=== PATIENT | male | born 1975 | race American Indian/Alaskan Native ===

== ENCOUNTER 2017-07-28 22:34 | Emergency (ER) | payer MEDICARE ==
[2017-07-28 22:44] VITALS: BMI 31.0
[2017-07-28] MEDS ORDERED: Multivitamin (MVI) 10 ML, Thiamine 100 MG, Folic Acid 1 MG in Sodium Chloride 0.9% 1,00... IV ONE (22:51)
--- NOTE | 2017-07-28 22:57 | ED PDOC ---
Arrival/HPI <Yesenia Briseno - Last Filed: 07/29/17 06:49> - General Historian: Patient <Gloria Valladares PA-C - Last Filed: 07/31/17 01:20> - General Time Seen by Provider: 07/28/17 22:41 - History of Present Illness Narrative History of Present Illness (Text): 07/28/17 22:54 41 yo M presents to the ER, brought in by ambulance for etoh intoxication. Patient admits to drinking alcohol today, as per EMS, patient admitted to them that he drank 24 ounces of beer and was found sitting in front of a laundry mat. Patient admits to drinking daily, he states that he usually goes to [facility]. Reports no h/o trauma, injury. Denies any headache, CP, SOB, abdominal pain. PMD none (Gloria Valladares PA-C) Past Medical History - Provider Review Nursing Documentation Reviewed: Yes <Gloria Valladares PA-C - Last Filed: 07/31/17 01:20> Family/Social History - Physician Review Nursing Documentation Reviewed: Yes Family/Social History: Unknown Family HX <Gloria Valladares PA-C - Last Filed: 07/31/17 01:20> Allergies/Home Meds <Yesenia Briseno - Last Filed: 07/29/17 06:49> <Gloria Valladares PA-C - Last Filed: 07/31/17 01:20> Allergies/Adverse Reactions: Allergies No Known Allergies Allergy (Verified 07/28/17 22:38) Home Medications: Home Meds Medication Instructions Recorded Confirmed Unobtainable 07/28/17 07/28/17 Review of Systems - Review of Systems Constitutional: absent: Fatigue, Fevers Respiratory: absent: SOB, Cough Cardiovascular: absent: Chest Pain, Palpitations Gastrointestinal: absent: Abdominal Pain Skin: absent: Rash Neurological: absent: Headache, Dizziness <Gloria Valladares PA-C - Last Filed: 07/31/17 01:20> Physical Exam <Yesenia Briseno - Last Filed: 07/29/17 06:49> <Gloria Valladares PA-C - Last Filed: 07/31/17 01:20> - Physical Exam Narrative Physical Exam (Text): 07/28/17 22:58 GENERAL APPEARANCE: Patient is awake, alert, +strong odor of etoh in patient's breath, in no acute distress, +vomit on patient's clothes. SKIN: Warm, dry; (-) cyanosis. HEAD: Atraumatic, normocephalic. EYES: (+) mild injected conjunctiva, (-) conjunctival pallor, (-) scleral icterus. ENMT: Mucous membranes dry. NECK: (-) tenderness, (-) stiffness, (-) lymphadenopathy. CHEST AND RESPIRATORY: (-) rales, (-) rhonchi, (-) wheezes; breath sounds equal bilaterally. HEART AND CARDIOVASCULAR: (-) irregularity; (-) murmur, (-) gallop. ABDOMEN AND GI: (-) distention. Bowel sounds active; (-) tenderness, (-) guarding, (-) rebound, (-) palpable masses, (-) CVA tenderness. EXTREMITIES: (-) deformity, (-) edema, (+) distal pulses. NEURO AND PSYCH: Mental status as above; (-) focal findings. (Gloria Valladares PA-C) Vital Signs Temp Pulse Resp BP Pulse Ox 07/29/17 07:40 98 F 75 20 121/71 99 07/29/17 06:42 98 H 20 109/65 96 07/28/17 22:57 97.6 F 100 H 20 139/96 H 97 Medical Decision Making Reassessment Condition: Improved <Yesenia Briseno - Last Filed: 07/29/17 06:49> <Gloria Valladares PA-C - Last Filed: 07/31/17 01:20> ED Course and Treatment: 07/28/17 22:57 41 yo M presents to the ER, brought in by ambulance for etoh intoxication. As per EMT Peter, he states that he observed the patient vomiting here in the ER , he states that the patient vomited to the side of the bed and did not aspirate. Plan : - Labs - IV - Banana bag IV - FS Labs reviewed : glucose is 326 and etoh level is 306. IVF still infusing. On re- evaluation, patient is laying in bed comfortably, remains awake, alert, in no acute distress, is no longer vomiting and denies any nausea. Reports no pain at this time, is requesting to urinate, urinal provided to the patient. Will continue to observe until he is sober and safe for d/c. On re-evaluation, patient is sleeping comfortably in bed in no distress, breathing is easy and unlabored. Case endorsed to Dr. Briseno pending disposition. (Blaine ANDERSON,Gloria Colon) - Lab Interpretations Lab Results: 07/28/17 23:05 07/28/17 23:05 Lab Results 07/29/17 01:15: Lipase 297 07/29/17 01:15: Urine Opiates Screen Negative, Urine Methadone Screen Negative, Ur Barbiturates Screen Negative, Ur Phencyclidine Scrn Negative, Ur Amphetamines Screen Negative, U Benzodiazepines Scrn Negative, U Oth Cocaine Metabols Negative, U Cannabinoids Screen Negative 07/28/17 23:05: Alcohol, Quantitative 306 H* 07/28/17 23:05: Sodium 139, Potassium 4.1, Chloride 98, Carbon Dioxide 24, Anion Gap 21 H, BUN 10, Creatinine 0.6 L, Est GFR ( Amer) > 60, Est GFR ( Non-Af Amer) > 60, Random Glucose 326 H*, Calcium 9.6, Total Bilirubin 0.4, AST 27, ALT 32, Alkaline Phosphatase 84, Total Protein 8.0, Albumin 4.6, Globulin 3.4, Albumin/Globulin Ratio 1.3 07/28/17 23:05: WBC 8.2, RBC 5.26, Hgb 15.1, Hct 44.2, MCV 84.0, MCH 28.7, MCHC 34.2, RDW 12.3, Plt Count 195, MPV 9.5, Gran % 62.1, Lymph % (Auto) 28.7, Cobb % (Auto) 6.4 H, Eos % (Auto) 2.4, Baso % (Auto) 0.4, Gran # 5.08, Lymph # 2.4, Cobb # 0.5, Eos # 0.2, Baso # 0.03 - RAD Interpretation Radiology Orders: 07/29/17 01:26 CHEST TWO VIEWS (PA/LAT) [RAD] Stat - Medication Orders Current Medication Orders: Discontinued Medications Multivitamins/Vitamin C 10 ml/Thiamine HCl 100 mg/ Folic Acid 1 mg/ Sodium Chloride 1,011.2 mls @ 500 mls/hr IV .Q2H2M ONE Stop: 07/29/17 00:52 Last Admin: 07/28/17 23:16 Dose: 500 mls/hr eMAR Start Stop Document 07/28/17 23:16 YP (Rec: 07/28/17 23:16 YP [id number]) Intravenous Solution Start Date 07/28/17 Start Time 23:16 End Date 07/29/17 End time 01:18 Total Infusion Time 122 Ondansetron HCl (Zofran Inj) 4 mg IVP STAT STA Stop: 07/28/17 23:09 Last Admin: 07/28/17 23:12 Dose: 4 mg IVP Administration Document 07/28/17 23:12 YP (Rec: 07/28/17 23:12 YP [id number]) Charges for Administration # of IVP Administrations 1 - PA / SALES ENGAGEMENT EXECUTIVE / Resident Statement MD/DO has reviewed & agrees with the documentation as recorded. <Gloria Valladares PA-C - Last Filed: 07/31/17 01:20> Disposition/Present on Arrival - Disposition Have Diagnosis and Disposition been Completed?: Yes Disposition Time: 06:51 Patient Plan: Discharge <Yesenia Briseno - Last Filed: 07/29/17 06:49> - Present on Arrival Any Indicators Present on Arrival: No History of DVT/PE: No History of Uncontrolled Diabetes: No Urinary Catheter: No History of Decub. Ulcer: No - Disposition Have Diagnosis and Disposition been Completed?: Yes <Gloria Valladares PA-C - Last Filed: 07/31/17 01:20> - Disposition Diagnosis: Alcohol intoxication, Hyperglycemia Disposition: HOME/ ROUTINE Condition: GOOD Discharge Instructions (ExitCare): Alcohol Intoxication (ED), Diabetic Hyperglycemia (ED) Print Language: FIJIAN Additional Instructions: Mr Augustin, thank you for letting us take care of you today. Your provider was Dr. Mar. You were treated for Alcohol Intoxication, Hyperglycemia. The emergency medical care you received today was directed at your acute symptoms. If you were prescribed any medication, please fill it and take as directed. It may take several days for your symptoms to resolve. Return to the Emergency Department if your symptoms worsen, do not improve, or if you have any other problems. Please contact your doctor or call one of the physicians/clinics you have been referred to that are listed on the Patient Visit Information form that is included in your discharge packet. Bring any paperwork you were given at discharge with you along with any medications you are taking to your follow up visit. Our treatment cannot replace ongoing medical care by a primary care provider (PCP) outside of the emergency department. Thank you for allowing the [facility] team to be part of your care today. If you had an X-Ray or CT scan: A Radiologist will review the ED reading if any change in treatment is needed we will contact you. If you had a blood, urine, or wound culture: It will take several days for the results, if any change in treatment is needed we will contact you. If you had an STI test: It will take 48 hours for the results. Please call after 1 week if you have not heard back. Referrals: PCP,NO [Primary Care Provider] - Follow up with primary [facility] [Outside] - Follow up with primary Forms: [employer] (Burkinan), WORK NOTE
[2017-07-28 22:58] VITALS: RESP 20
[2017-07-28 23:16] LABS: BASO # 0.03 K/mm3 (0.0-2.0); BASO % 0.4 % (0.0-3.0); EOS # 0.2 (0.0-0.7); EOS % 2.4 % (1.5-5.0); GRAN # 5.08 (1.4-6.5); GRAN % 62.1 % (50.0-68.0); HEMATOCRIT 44.2 % (42.0-52.0); LYMPH # 2.4 (1.2-3.4); LYMPH % 28.7 % (22.0-35.0); MEAN CORPUSCULAR HEMOGLOBIN 28.7 pg (25.0-35.0); MEAN CORPUSCULAR HGB CONC 34.2 g/dl (31.0-37.0); MEAN PLATELET VOLUME 9.5 fl (7.0-11.0); MONO # 0.5 (0.1-0.6); MONO % 6.4 % (1.0-6.0); RED CELL DISTRIBUTION WIDTH 12.3 % (11.5-14.5); WHITE BLOOD COUNT 8.2 10^3/ul (4.5-11.0)
[2017-07-29 00:14] LABS: ALB/GLOB RATIO 1.3 (1.1-1.8); ALKALINE PHOSPHATASE 84 U/L (38-126); ALT/SGPT 32 U/L (7-56); AST/SGOT 27 U/L (17-59); BILIRUBIN,TOTAL 0.4 mg/dL (0.2-1.3); BLOOD UREA NITROGEN 10 mg/dL (7-21); CALCIUM 9.6 mg/dL (8.4-10.5); CARBON DIOXIDE 24 mmol/L (21-33); CHLORIDE 98 mmol/L (98-107); GFR AFRICAN-AMERICAN > 60; GLUCOSE,RANDOM 326 mg/dL (70-110); POTASSIUM 4.1 mmol/L (3.6-5.0); SODIUM 139 mmol/L (132-148)
--- NOTE | 2017-07-29 07:35 | ED PDOC ---
Physical Exam Vital Signs Temp Pulse Resp BP Pulse Ox 07/29/17 06:42 98 H 20 109/65 96 07/28/17 22:57 97.6 F 100 H 20 139/96 H 97 Finger Stick Blood Glucose: 308 Medical Decision Making ED Course and Treatment: 07/29/17 07:00 Case signed out to me by Dr. Briseno. Patient was brought in to the emergency department via EMS ETOH intoxication. Patient admits to drinking alcohol today, as per EMS, patient admitted to them that he drank 24 ounces of beer and was found sitting in front of a laundry mat. Currently observing patient for sobriety. 07/29/17 07:37 Patient is currently sober. Patient has no slurred speech and is awake, alert and oriented x 3. Denies any pain. No HI or SI. Encouraged him to enter an alcohol detox program. He will f/u with a primary care doctor or the clinic. - Lab Interpretations Lab Results: 07/28/17 23:05 07/28/17 23:05 Lab Results 07/29/17 01:15: Lipase 297 07/29/17 01:15: Urine Opiates Screen Negative, Urine Methadone Screen Negative, Ur Barbiturates Screen Negative, Ur Phencyclidine Scrn Negative, Ur Amphetamines Screen Negative, U Benzodiazepines Scrn Negative, U Oth Cocaine Metabols Negative, U Cannabinoids Screen Negative 07/28/17 23:05: Alcohol, Quantitative 306 H* 07/28/17 23:05: Sodium 139, Potassium 4.1, Chloride 98, Carbon Dioxide 24, Anion Gap 21 H, BUN 10, Creatinine 0.6 L, Est GFR ( Amer) > 60, Est GFR ( Non-Af Amer) > 60, Random Glucose 326 H*, Calcium 9.6, Total Bilirubin 0.4, AST 27, ALT 32, Alkaline Phosphatase 84, Total Protein 8.0, Albumin 4.6, Globulin 3.4, Albumin/Globulin Ratio 1.3 07/28/17 23:05: WBC 8.2, RBC 5.26, Hgb 15.1, Hct 44.2, MCV 84.0, MCH 28.7, MCHC 34.2, RDW 12.3, Plt Count 195, MPV 9.5, Gran % 62.1, Lymph % (Auto) 28.7, Dukes % (Auto) 6.4 H, Eos % (Auto) 2.4, Baso % (Auto) 0.4, Gran # 5.08, Lymph # 2.4, Dukes # 0.5, Eos # 0.2, Baso # 0.03 - RAD Interpretation Radiology Orders: 07/29/17 01:26 CHEST TWO VIEWS (PA/LAT) [RAD] Stat - Medication Orders Current Medication Orders: Discontinued Medications Multivitamins/Vitamin C 10 ml/Thiamine HCl 100 mg/ Folic Acid 1 mg/ Sodium Chloride 1,011.2 mls @ 500 mls/hr IV .Q2H2M ONE Stop: 07/29/17 00:52 Last Admin: 07/28/17 23:16 Dose: 500 mls/hr eMAR Start Stop Document 07/28/17 23:16 YP (Rec: 07/28/17 23:16 YP [id number]) Intravenous Solution Start Date 07/28/17 Start Time 23:16 End Date 07/29/17 End time 01:18 Total Infusion Time 122 Ondansetron HCl (Zofran Inj) 4 mg IVP STAT STA Stop: 07/28/17 23:09 Last Admin: 07/28/17 23:12 Dose: 4 mg IVP Administration Document 07/28/17 23:12 YP (Rec: 07/28/17 23:12 YP [id number]) Charges for Administration # of IVP Administrations 1 - Scribe Statement The provider has reviewed the documentation as recorded by the Shraddhaibe Jeanette Vera Provider Scribe Attestation: All medical record entries made by the Scribe were at my direction and personally dictated by me. I have reviewed the chart and agree that the record accurately reflects my personal performance of the history, physical exam, medical decision making, and the department course for this patient. I have also personally directed, reviewed, and agree with the discharge instructions and disposition. Disposition/Present on Arrival - Present on Arrival Any Indicators Present on Arrival: No History of DVT/PE: No History of Uncontrolled Diabetes: No Urinary Catheter: No History of Decub. Ulcer: No History Surgical Site Infection Following: None - Disposition Have Diagnosis and Disposition been Completed?: Yes Diagnosis: Alcohol intoxication, Hyperglycemia Disposition: HOME/ ROUTINE Disposition Time: 07:41 Patient Plan: Discharge Condition: GOOD Discharge Instructions (ExitCare): Alcohol Intoxication (ED), Diabetic Hyperglycemia (ED) Print Language: TAMAZIGHT Additional Instructions: Mr Augustin, thank you for letting us take care of you today. Your provider was Dr. Mar. You were treated for Alcohol Intoxication, Hyperglycemia. The emergency medical care you received today was directed at your acute symptoms. If you were prescribed any medication, please fill it and take as directed. It may take several days for your symptoms to resolve. Return to the Emergency Department if your symptoms worsen, do not improve, or if you have any other problems. Please contact your doctor or call one of the physicians/clinics you have been referred to that are listed on the Patient Visit Information form that is included in your discharge packet. Bring any paperwork you were given at discharge with you along with any medications you are taking to your follow up visit. Our treatment cannot replace ongoing medical care by a primary care provider (PCP) outside of the emergency department. Thank you for allowing the [facility] team to be part of your care today. If you had an X-Ray or CT scan: A Radiologist will review the ED reading if any change in treatment is needed we will contact you. If you had a blood, urine, or wound culture: It will take several days for the results, if any change in treatment is needed we will contact you. If you had an STI test: It will take 48 hours for the results. Please call after 1 week if you have not heard back. Referrals: [facility] at [facility] [place] [Outside] - Follow up with primary PCP,NO [Primary Care Provider] - Follow up with primary Forms: [employer] (Mohawk), WORK NOTE
[2017-07-29 07:41] VITALS: BP 121/71; PULSE 75; TEMP 98; O2SAT 99
--- NOTE | 2017-07-29 10:00 | RAD ---
HISTORY: cough COMPARISON: No prior. TECHNIQUE: Chest PA and lateral FINDINGS: LUNGS: No active pulmonary disease. PLEURA: No significant pleural effusion identified. No pneumothorax apparent. CARDIOVASCULAR: Normal. OSSEOUS STRUCTURES: Mild multilevel degenerative spondylosis of the thoracic spine VISUALIZED UPPER ABDOMEN: Normal. OTHER FINDINGS: None. IMPRESSION: No active disease.
== END 2017-07-29 07:42 | disposition home or self-care (01) ==
LOC: ED 22:34
DX: F10.129 Alcohol abuse with intoxication, unspecified (principal); R73.9 Hyperglycemia, unspecified; Y90.8 Blood alcohol level of 240 mg/100 ml or more
CPT/HCPCS: 71020; 80053; 83690; 85025; 96365; 96366; 96375; 99284; G0480; J2405; J3411; J7040

== ENCOUNTER 2017-08-30 22:05 | Emergency (ER) | payer MEDICARE ==
[2017-08-30 22:05] VITALS: BMI 31.0
--- NOTE | 2017-08-30 22:44 | ED PDOC ---
Arrival/HPI - General Chief Complaint: Alcohol Ingestion Time Seen by Provider: 08/30/17 22:39 EM Caveat: Intoxicated - History of Present Illness Narrative History of Present Illness (Text): 08/30/17 22:40 42 year old male, whose past medical history includes alcohol intoxication and Type 2 diabetes, presents to the emergency department by EMS for public alcohol intoxication. Patient was found outside sleeping on [facility] in [place] by the Police. Noted finger-stick on the field found to be 321 similar to finger-stick from visit a month ago. Patient is awake and alert. Patient admits to drinking. HPI and ROS limited due to patient's state of intoxication. Past Medical History - Provider Review Nursing Documentation Reviewed: Yes - Infectious Disease Hx of Infectious Diseases: None - Cardiac Hx Cardiac Disorders: No - Pulmonary Hx Respiratory Disorders: No - Neurological Hx Neurological Disorder: No - HEENT Hx HEENT Disorder: No - Renal Hx Renal Disorder: No - Endocrine/Metabolic Hx Diabetes Mellitus Type 1: Yes Hx Diabetes Mellitus Type 2: Yes - Hematological/Oncological Hx Blood Disorders: No - Integumentary Hx Dermatological Disorder: No - Musculoskeletal/Rheumatological Hx Musculoskeletal Disorders: No - Gastrointestinal Hx Gastrointestinal Disorders: No - Genitourinary/Gynecological Hx Genitourinary Disorders: No - Psychiatric Hx Psychophysiologic Disorder: No Hx Substance Use: Yes - Anesthesia Hx Anesthesia: No Family/Social History - Physician Review Nursing Documentation Reviewed: Yes Family/Social History: No Known Family HX Smoking Status: Smoker Currrent Status Unknown Hx Alcohol Use: Yes Hx Substance Use: Yes Allergies/Home Meds Allergies/Adverse Reactions: Allergies No Known Allergies Allergy (Verified 07/28/17 22:38) Home Medications: Home Meds Medication Instructions Recorded Confirmed Unobtainable 07/28/17 07/28/17 Review of Systems - Physician Review All systems were reviewed & negative as marked: Yes - Review of Systems Systems not reviewed;Unavailable: Intoxicated Physical Exam - Physical Exam Narrative Physical Exam (Text): Constitutional: No acute distress. Head: Normocephalic. Atraumatic. Eyes: PERRL. Blood shot. ENT: Moist mucous membranes. Alcohol on breath. Neck: Supple. No midline tenderness. Cardiovascular: Regular rate. Chest: No tenderness. Respiratory: Clear to auscultation bilaterally. GI: Soft. Nontender. Nondistended. Back: No CVA tenderness. No midline tenderness. Musculoskeletal: No tenderness or swelling of extremities. FROM x4. Skin: No rash. No Gangrene digits x20. Neurologic: Alert, no focal deficit.. Vital Signs Temp Pulse Resp BP Pulse Ox 08/31/17 06:05 98 H 18 115/70 97 08/31/17 04:05 97 H 18 113/73 97 08/31/17 02:05 97 H 18 110/71 98 08/31/17 00:05 98 H 18 115/74 98 08/30/17 22:05 98.8 F 100 H 18 112/70 97 Medical Decision Making ED Course and Treatment: 08/30/17 22:40 Plan: -- CT Head w/o Contrast -- Labs -- Reassess and disposition Progress Notes: Noted finger stick on field to be 321. On previous visit about 1 month ago, patient has same glucose. 08/31/17 06:31 CT Head no bleed. Patienta wake and steady gait. - Lab Interpretations Lab Results: 08/31/17 00:05 Lab Results 08/31/17 03:04: POC Glucose (mg/dL) 194 H 08/31/17 00:05: Alcohol, Quantitative 230 H 08/31/17 00:05: Sodium 133, Potassium 3.3 L, Chloride 94 L, Carbon Dioxide 22, Anion Gap 21 H, BUN 5 L, Creatinine 0.5 L, Est GFR ( Amer) > 60, Est GFR (Non-Af Amer) > 60, Random Glucose 257 H, Calcium 8.7, Total Bilirubin 0.4, AST 37, ALT 35, Alkaline Phosphatase 73, Total Protein 7.4, Albumin 4.3, Globulin 3.1, Albumin/Globulin Ratio 1.4 I have reviewed the lab results: Yes - RAD Interpretation Radiology Orders: 08/30/17 22:41 HEAD W/O CONTRAST [CT] Stat - Medication Orders Current Medication Orders: Discontinued Medications Acetaminophen (Tylenol 325mg Tab) 325 mg PO STAT STA Stop: 08/31/17 02:32 - Scribe Statement The provider has reviewed the documentation as recorded by the Shraddhaibe Kaylan Banks Provider Scribe Attestation: All medical record entries made by the Scribe were at my direction and personally dictated by me. I have reviewed the chart and agree that the record accurately reflects my personal performance of the history, physical exam, medical decision making, and the department course for this patient. I have also personally directed, reviewed, and agree with the discharge instructions and disposition. Disposition/Present on Arrival - Present on Arrival Any Indicators Present on Arrival: No History of DVT/PE: No History of Uncontrolled Diabetes: No Urinary Catheter: No History of Decub. Ulcer: No History Surgical Site Infection Following: None - Disposition Have Diagnosis and Disposition been Completed?: Yes Diagnosis: Alcohol intoxication Disposition: HOME/ ROUTINE Disposition Time: 06:32 Patient Plan: Discharge Condition: STABLE Discharge Instructions (ExitCare): Alcohol Intoxication (ED) Referrals: PCP,NO [Primary Care Provider] - Follow up with primary Forms: [employer] (Guinean)
[2017-08-30 22:58] VITALS: RESP 18; TEMP 98.8
[2017-08-31 00:37] LABS: ALB/GLOB RATIO 1.4 (1.1-1.8); ALBUMIN 4.3 g/dL (3.0-4.8); ALT/SGPT 35 U/L (7-56); AST/SGOT 37 U/L (17-59); BLOOD UREA NITROGEN 5 mg/dL (7-21); CALCIUM 8.7 mg/dL (8.4-10.5); GFR AFRICAN-AMERICAN > 60; GFR NON-AFRICAN AMERICAN > 60
--- NOTE | 2017-08-31 06:36 | CT ---
EXAM: CT Head Without Intravenous Contrast CLINICAL HISTORY: 42 years old, male; Signs and symptoms; Altered mental status/memory loss TECHNIQUE: Axial computed tomography images of the head/brain without intravenous contrast. All CT scans at this facility use one or more dose reduction techniques, viz.: automated exposure control; ma/kV adjustment per patient size (including targeted exams where dose is matched to indication; i.e. head); or iterative reconstruction technique. 356 images are submitted. Coronal and sagittal reformatted images were created and reviewed. COMPARISON: No relevant prior studies available. FINDINGS: Brain: Mild cerebral and cerebellar volume loss. Minimal hypodensity is seen in the periventricular cerebral white matter. No hemorrhage. Ventricles: Unremarkable. No ventriculomegaly. Bones/joints: Unremarkable. No acute fracture. Soft tissues: Occipital subcutaneous soft tissue infiltration representing hematoma or soft tissue swelling seen on image one series 2. Sinuses: Moderate left maxillary sinus disease. Patchy ethmoid sinus disease. Mild patchy sinus disease. Mastoid air cells: Unremarkable. No mastoid effusion. Other findings: The left ostiomeatal unit is obscured by mucosal thickening. IMPRESSION: 1. Occipital subcutaneous soft tissue infiltration representing hematoma or soft tissue swelling seen on image one series 2. 2. No evidence of an acute intracranial hemorrhage, midline shift or mass effect is identified.
[2017-08-31 06:46] VITALS: BP 117/67; PULSE 95; O2SAT 99
== END 2017-08-31 06:46 | disposition home or self-care (01) ==
LOC: ED 22:05
DX: F10.129 Alcohol abuse with intoxication, unspecified (principal); E11.9 Type 2 diabetes mellitus without complications; Y90.7 Blood alcohol level of 200-239 mg/100 ml
CPT/HCPCS: 70450; 80053; 82948; 99285; G0480